=== PATIENT | male | born 1945 | race Caucasian/White ===

== ENCOUNTER 2017-09-03 09:04 | Outpatient (CLI) | payer MEDICARE ==
--- NOTE | 2017-09-03 11:15 | CT ---
CT CHEST WITHOUT CONTRAST: Date: 09/03/17 HISTORY: Atherosclerosis with [place] coronary artery of [place] heart with stable angina pectoris, shortness of breath and chest pain. Evaluation for surgery. FINDINGS: Absence of IV contrast reduces the sensitivity of exam, particularly for evaluation of mediastinal, h ilar, and vascular structures. Vascular calcifications are present. There are changes of median sternotomy. No pneumothoraces, focal areas of consolidation, lung masses, or pleural or pericardial effusions are seen. There is an 8.0 m m perifissural nodule on the left. Measurements of the ascending thoracic aorta on the coronal reformatted images are as follows: Aortic annulus: 2.5 cm Aortic sinus with Valsalva: 3.8 cm Sinotubular junction: 2.7 cm Mid ascending aorta: 3.5 cm High ascending aorta: 3.7 cm The AP dimensions of the ascending and descending thoracic aorta are 3.9 cm and 3.3 cm. Upper abdominal tomograms demonstrate incomplete visualization of an infrarenal abdominal aortic aneu rysm which measures 3.8 cm in the visualized portions. Upper abdominal tomograms demonstrate left renal cysts. There are degenerative changes in the spine. IMPRESSION: Atherosclerotic vascular disease with aortic measurements as described above. POS: DUSTY
== END 2017-09-03 09:05 | disposition home or self-care (01) ==
LOC: CT 09:04
PROVIDERS: ATTEND Thoracic Surgery (Cardiothoracic Vascular Surgery)
DX: I25.119 Atherosclerotic heart disease of native coronary artery with unspecified angina pectoris (principal); I71.4 Abdominal aortic aneurysm, without rupture
CPT/HCPCS: 71250

== ENCOUNTER 2021-08-08 14:36 | Inpatient (IN) | payer MEDICARE ==
[2021-08-08] MEDS ORDERED: HYDROmorphone 0.5 MG/0.5 ML SYRINGE ONE (15:31)
[2021-08-08 15:35] LABS: #Eosinphils 0.2 thou/uL (0.0-0.7); #Lymphocytes 0.7 thou/uL (1.20-3.40); #Monocytes 0.8 thou/uL (0.11-0.59); #Neutrophils 6.6 thou/uL (1.40-6.50); %Basophils 0.2 % (0.0-1.0); %Eosinophils 2.2 % (0.0-10.0); %Monocytes 9.4 % (0.0-10.0); %Neutrophils 80.2 % (42.0-75.0); Hemoglobin 10.7 g/dL (14.0-18.0); Mean Corpuscular HGB CONC 33.1 g/dL (32.0-36.0); Mean Corpuscular Hemoglobin 32.2 pg (27.0-31.0); Mean Corpuscular Volume 97.2 fL (78.0-98.0); Mean Platelet Volume 8.6 fL (7.4-10.4); Platelet Count 184 thou/uL (130-400); RBC Distribution Width 12.2 % (11.5-14.5); Red Blood Cell (RBC) Count 3.32 mill/uL (4.70-6.10); White Blood Cell (WBC) Count 8.3 thou/uL (4.8-10.8)
[2021-08-08] MEDS ORDERED: Dextrose 50% Abboject 50 ML SYRINGE SLOW IVP PRN (15:49)
[2021-08-08] MEDS ORDERED: Ondansetron ODT 4 MG TAB PO PRN (15:49)
[2021-08-08] MEDS ORDERED: Ondansetron PF 4 MG/2 ML Vial IVP PRN (15:49)
[2021-08-08] MEDS ORDERED: Dextrose 5% in Water 1,000 ML IV PRN (15:49)
[2021-08-08] MEDS ORDERED: Promethazine HCl 25 MG/ML VIAL IM PRN (15:49)
[2021-08-08] MEDS ORDERED: hydrALAZINE 20 MG/ML VIAL SLOW IVP PRN (15:49)
[2021-08-08] MEDS ORDERED: traMADol HCl 50 MG TAB PO PRN (15:56)
[2021-08-08 15:57] LABS: ALT (SGPT) 16 U/L (8-55); AST (SGOT) 19 U/L (5-34); Albumin 3.5 g/dL (3.4-4.8); Alkaline Phosphatase 75 U/L (40-110); Anion Gap 14 mmol/L (10-20); BUN (Urea Nitrogen) 31 mg/dL (8.4-25.7); Bilirubin, Total 0.5 mg/dL (0.2-1.2); Calc. Creatinine Clearance 0 mL/min (70-130); Calcium 8.3 mg/dL (7.8-10.44); Carbon Dioxide 22 mmol/L (23-31); Chloride 107 mmol/L (98-107); Globulin 2.3 g/dL (2.4-3.5); Glucose 92 mg/dL (83-110); Potassium 4.6 mmol/L (3.5-5.1); Protein, Total 5.8 g/dL (5.8-8.1); Sodium 138 mmol/L (136-145)
[2021-08-08] MEDS ORDERED: Acetaminophen 325 MG TAB PO SCH (16:00)
[2021-08-08 16:39] LABS: INR-International Normal Ratio 1.4; PTT 45.6 sec (22.9-36.1); Prothrombin Time 16.8 sec (12.0-14.7)
[2021-08-08 17:13] VITALS: BMI 20.6
[2021-08-08] MEDS ORDERED: traMADol HCl 50 MG TAB PO SCH (18:00)
[2021-08-08] MEDS: Acetaminophen 500 MG TAB PO SCH ×2 (18:01→23:06)
[2021-08-08] MEDS: Sodium Chloride 0.9% 1,000 ML IV SCH ×2 (18:02→23:06)
[2021-08-08] MEDS ORDERED: ceFAZolin (BATCH) 2 GM in Premix Bag 1 BAG IVPB SCH (18:30)
[2021-08-08 19:25] LABS: Bacteria/HPF None Seen HPF (None Seen); Bilirubin Negative (Negative); Blood, Urine Negative (Negative); Clarity Clear (Clear); Glucose, Urine (Dipstick) Normal (Negative); Ketone, Urine Trace mg/dL (Negative); Leukocyte Negative Leu/uL (Negative); Nitrite Negative (Negative); Protein, Urine (Dipstick) Negative (Neg-Trace); RBC/HPF 0-3 HPF (0-3); Specific Gravity, Urine 1.011 (1.002-1.036); Squamous Epithelial None Seen HPF (0-3); Urobilinogen Normal mg/dL (Less than 2); WBC/HPF 0-3 HPF (0-3)
[2021-08-08 19:26] LABS: Sperm/HPF 1+ HPF (None Seen)
[2021-08-08 19:28] LABS: Urine Culture Reflex No No
[2021-08-08] MEDS: Senokot S 8.6-50 MG TAB PO SCH (20:05)
[2021-08-08] MEDS: Tamsulosin HCl 0.4 MG CAP PO SCH (20:05)
[2021-08-08] MEDS: traMADol HCl 50 MG TAB PO SCH (20:05)
[2021-08-08] MEDS ORDERED: Famotidine/PF 20 mg/2ml Vial SLOW IVP SCH (21:00)
[2021-08-08] MEDS ORDERED: Ibuprofen 200 MG TAB PO SCH (22:00)
[2021-08-08] MEDS: Morphine 2 MG/ML VIAL SLOW IVP PRN (23:05)
[2021-08-09 00:53] LABS: SARS-CoV-2 PCR by NAA Not Detected (NotDetected)
[2021-08-09] MEDS: Morphine 2 MG/ML VIAL SLOW IVP PRN ×4 (02:36→11:58)
[2021-08-09] MEDS: Acetaminophen 500 MG TAB PO SCH ×3 (05:50→20:02)
[2021-08-09 07:00] LABS: #Eosinphils 0.6 thou/uL (0.0-0.7); #Lymphocytes 0.9 thou/uL (1.20-3.40); #Monocytes 0.8 thou/uL (0.11-0.59); #Neutrophils 5.7 thou/uL (1.40-6.50); %Basophils 0.4 % (0.0-1.0); %Eosinophils 7.6 % (0.0-10.0); %Lymphocytes 11.1 % (21.0-51.0); %Monocytes 10.5 % (0.0-10.0); %Neutrophils 70.4 % (42.0-75.0); Hemoglobin 11.1 g/dL (14.0-18.0); Mean Corpuscular HGB CONC 33.9 g/dL (32.0-36.0); Mean Corpuscular Hemoglobin 33.5 pg (27.0-31.0); Mean Corpuscular Volume 98.8 fL (78.0-98.0); Mean Platelet Volume 8.9 fL (7.4-10.4); Platelet Count 156 thou/uL (130-400); RBC Distribution Width 12.7 % (11.5-14.5); Red Blood Cell (RBC) Count 3.31 mill/uL (4.70-6.10)
[2021-08-09 07:17] LABS: Anion Gap 13 mmol/L (10-20); BUN (Urea Nitrogen) 20 mg/dL (8.4-25.7); Calc. Creatinine Clearance 40 mL/min (70-130); Calcium 7.8 mg/dL (7.8-10.44); Carbon Dioxide 21 mmol/L (23-31); Chloride 109 mmol/L (98-107); Glucose 89 mg/dL (83-110); Phosphorus 2.7 mg/dL (2.3-4.7); Potassium 4.7 mmol/L (3.5-5.1); Sodium 138 mmol/L (136-145)
[2021-08-09] MEDS: Sodium Chloride 0.9% 1,000 ML IV SCH ×2 (09:18→20:38)
[2021-08-09] MEDS: Famotidine 20 MG TAB PO SCH ×2 (09:20→20:37)
[2021-08-09] MEDS: traMADol HCl 50 MG TAB PO SCH ×2 (09:20→20:38)
[2021-08-09] MEDS: Senokot S 8.6-50 MG TAB PO SCH ×2 (09:21→20:37)
[2021-08-09] MEDS: Polyethylene Glycol 3350 17 GM Packet PO SCH (09:21)
[2021-08-09] MEDS: Gabapentin 100 MG CAP PO SCH ×2 (15:20→20:38)
[2021-08-09] MEDS: Cyclobenzaprine 10 MG TAB PO PRN ×2 (15:21→20:38)
[2021-08-09] MEDS: Tamsulosin HCl 0.4 MG CAP PO SCH (20:37)
[2021-08-10] MEDS: Acetaminophen 500 MG TAB PO SCH ×4 (00:31→18:05)
[2021-08-10] MEDS: Sodium Chloride 0.9% 1,000 ML IV SCH ×3 (05:08→14:27)
[2021-08-10] MEDS: Cyclobenzaprine 10 MG TAB PO PRN (05:09)
[2021-08-10] MEDS: Gabapentin 100 MG CAP PO SCH ×2 (05:10→14:02)
[2021-08-10] MEDS: Polyethylene Glycol 3350 17 GM Packet PO SCH (08:05)
[2021-08-10] MEDS: Senokot S 8.6-50 MG TAB PO SCH (08:06)
[2021-08-10] MEDS: Famotidine 20 MG TAB PO SCH (08:32)
[2021-08-10] MEDS: traMADol HCl 50 MG TAB PO SCH ×2 (08:32→14:01)
[2021-08-10] MEDS: Ferrous Sulfate 325 MG TAB PO SCH (09:35)
[2021-08-10] MEDS: Flecainide 50 MG TAB PO SCH (09:41)
[2021-08-10] MEDS: Morphine 2 MG/ML VIAL SLOW IVP PRN (09:45)
[2021-08-10 12:37] LABS: Anion Gap 8 mmol/L (10-20); BUN (Urea Nitrogen) 14 mg/dL (8.4-25.7); Calc. Creatinine Clearance 44 mL/min (70-130); Calcium 8.1 mg/dL (7.8-10.44); Carbon Dioxide 25 mmol/L (23-31); Chloride 108 mmol/L (98-107); Glucose 99 mg/dL (83-110); Potassium 4.6 mmol/L (3.5-5.1); Sodium 136 mmol/L (136-145)
[2021-08-10] MEDS ORDERED: Fentanyl 250 MCG/5 ML VIAL ONE (15:49)
[2021-08-10] MEDS ORDERED: Sodium Chloride 0.9% 100 ML ONE (15:57)
[2021-08-10] MEDS ORDERED: CEFAZOLIN 2 GM VIAL ONE (15:57)
[2021-08-10] MEDS ORDERED: PROPOFOL 200 MG/20 ML VIAL ONE (16:12)
[2021-08-10] MEDS ORDERED: Rocuronium Bromide 10 MG/ML (10ML VIAL) ONE (16:12)
[2021-08-10] MEDS ORDERED: Succinylcholine 200 MG/10 ml SYRINGE FS ONE (16:12)
[2021-08-10] MEDS ORDERED: ePHEDrine 50 MG/ML VIAL ONE (16:12)
[2021-08-10] MEDS ORDERED: Dexamethasone 20 MG/5 ML VIAL ONE (16:12)
[2021-08-10] MEDS ORDERED: Glycopyrrolate 0.2 MG/ML 5 ML SYRINGE ONE (16:12)
[2021-08-10] MEDS ORDERED: Ondansetron PF 4 MG/2 ML Vial ONE (16:12)
[2021-08-10] MEDS ORDERED: PHENYLEPHRINE-NS 100 MCG/ML 10 ML SYRINGE ONE (16:12)
[2021-08-10] MEDS ORDERED: Lidocaine 1% PF 5 ML VIAL ONE (16:12)
[2021-08-10] MEDS ORDERED: fentaNYL Citrate/PF 100 MCG/2 ML SYRINGE ONE (18:15)
[2021-08-11] MEDS: CEFAZOLIN 2 GM in Sodium Chloride 0.9% 100 ML IVPB SCH ×3 (00:50→15:56)
[2021-08-11] MEDS: Sodium Chloride 0.9% 1,000 ML IV SCH ×2 (00:52→08:48)
[2021-08-11] MEDS: Cyclobenzaprine 10 MG TAB PO SCH ×3 (00:58→21:55)
[2021-08-11] MEDS: Gabapentin 100 MG CAP PO SCH ×4 (00:59→21:55)
[2021-08-11] MEDS: Senokot S 8.6-50 MG TAB PO SCH ×4 (00:59→21:55)
[2021-08-11] MEDS: traMADol HCl 50 MG TAB PO SCH ×5 (00:59→21:54)
[2021-08-11] MEDS: Tamsulosin HCl 0.4 MG CAP PO SCH ×3 (00:59→21:55)
[2021-08-11] MEDS: Flecainide 50 MG TAB PO SCH ×4 (00:59→21:53)
[2021-08-11] MEDS: Famotidine 20 MG TAB PO SCH ×4 (00:59→21:53)
[2021-08-11] MEDS: Acetaminophen 500 MG TAB PO SCH ×5 (01:00→17:56)
[2021-08-11 05:22] LABS: #Lymphocytes 0.3 thou/uL (1.20-3.40); #Monocytes 0.6 thou/uL (0.11-0.59); #Neutrophils 9.2 thou/uL (1.40-6.50); %Eosinophils 0.1 % (0.0-10.0); %Lymphocytes 2.5 % (21.0-51.0); %Monocytes 6.3 % (0.0-10.0); %Neutrophils 91.2 % (42.0-75.0); Hemoglobin 10.3 g/dL (14.0-18.0); Mean Corpuscular HGB CONC 32.7 g/dL (32.0-36.0); Mean Corpuscular Hemoglobin 32.3 pg (27.0-31.0); Mean Corpuscular Volume 98.9 fL (78.0-98.0); Mean Platelet Volume 9.1 fL (7.4-10.4); Platelet Count 149 thou/uL (130-400); Red Blood Cell (RBC) Count 3.19 mill/uL (4.70-6.10)
[2021-08-11 06:05] LABS: Anion Gap 14 mmol/L (10-20); BUN (Urea Nitrogen) 18 mg/dL (8.4-25.7); Calc. Creatinine Clearance 41 mL/min (70-130); Calcium 8.1 mg/dL (7.8-10.44); Carbon Dioxide 20 mmol/L (23-31); Chloride 107 mmol/L (98-107); Glucose 159 mg/dL (83-110); Magnesium 1.7 mg/dL (1.6-2.6); Potassium 5.3 mmol/L (3.5-5.1); Sodium 136 mmol/L (136-145)
[2021-08-11] MEDS: Polyethylene Glycol 3350 17 GM Packet PO SCH (08:46)
[2021-08-11] MEDS: Ferrous Sulfate 325 MG TAB PO SCH (08:46)
[2021-08-11] MEDS: Apixaban 5 MG TAB PO SCH ×2 (10:12→21:55)
[2021-08-11] MEDS ORDERED: Sodium Chloride 0.9% 500 ML IV SCH (16:00)
[2021-08-11] MEDS ORDERED: Magnesium Sulfate 3 GM in Sodium Chloride 0.9% 100 ML IVPB SCH (16:45)
[2021-08-12] MEDS: Acetaminophen 500 MG TAB PO SCH ×5 (00:17→23:47)
[2021-08-12] MEDS: traMADol HCl 50 MG TAB PO SCH ×3 (05:22→21:39)
[2021-08-12 06:04] LABS: Hemoglobin 9.7 g/dL (14.0-18.0); Mean Corpuscular HGB CONC 33.2 g/dL (32.0-36.0); Mean Corpuscular Hemoglobin 32.4 pg (27.0-31.0); Mean Corpuscular Volume 97.5 fL (78.0-98.0); Mean Platelet Volume 9.4 fL (7.4-10.4); Platelet Count 154 thou/uL (130-400); RBC Distribution Width 12.3 % (11.5-14.5); Red Blood Cell (RBC) Count 3.01 mill/uL (4.70-6.10); White Blood Cell (WBC) Count 9.2 thou/uL (4.8-10.8)
[2021-08-12 06:19] LABS: Anion Gap 12 mmol/L (10-20); BUN (Urea Nitrogen) 24 mg/dL (8.4-25.7); Calc. Creatinine Clearance 42 mL/min (70-130); Calcium 8.4 mg/dL (7.8-10.44); Carbon Dioxide 22 mmol/L (23-31); Chloride 104 mmol/L (98-107); Glucose 106 mg/dL (83-110); Magnesium 2.5 mg/dL (1.6-2.6); Potassium 4.5 mmol/L (3.5-5.1); Sodium 133 mmol/L (136-145)
[2021-08-12 06:31] LABS: Band 34 % (5-11); Eosinophils 2 % (0-10); Lymphocytes 2 % (21-51); MDiff Complete? YES; Monocytes 9 % (0-10); Neutrophil 53 % (42-75)
[2021-08-12 06:45] LABS: Phosphorus 2.2 mg/dL (2.3-4.7)
[2021-08-12] MEDS: Gabapentin 100 MG CAP PO SCH (06:49)
[2021-08-12] MEDS: Apixaban 5 MG TAB PO SCH ×2 (08:36→21:34)
[2021-08-12] MEDS: Flecainide 50 MG TAB PO SCH ×2 (08:36→21:34)
[2021-08-12] MEDS: Ferrous Sulfate 325 MG TAB PO SCH (08:36)
[2021-08-12] MEDS: Senokot S 8.6-50 MG TAB PO SCH ×2 (08:37→21:33)
[2021-08-12] MEDS: Famotidine 20 MG TAB PO SCH ×2 (08:37→21:34)
[2021-08-12] MEDS: Polyethylene Glycol 3350 17 GM Packet PO SCH (08:37)
[2021-08-12] MEDS: Sodium Phosphate 30 MMOL in Sodium Chloride 0.9% 250 ML 250 ML IVPB SCH ×2 (14:17→18:21)
[2021-08-12] MEDS: Sodium Chloride 1 GM TAB PO SCH ×2 (17:00→23:47)
[2021-08-12] MEDS: Tamsulosin HCl 0.4 MG CAP PO SCH (21:34)
[2021-08-12] MEDS: Cyclobenzaprine 10 MG TAB PO SCH (21:34)
[2021-08-13] MEDS: Melatonin 3 MG TAB PO PRN ×2 (01:58→20:21)
[2021-08-13 06:17] LABS: Hemoglobin 8.3 g/dL (14.0-18.0); Mean Corpuscular HGB CONC 32.5 g/dL (32.0-36.0); Mean Corpuscular Hemoglobin 31.6 pg (27.0-31.0); Mean Corpuscular Volume 97.2 fL (78.0-98.0); Mean Platelet Volume 9.3 fL (7.4-10.4); Platelet Count 161 thou/uL (130-400); RBC Distribution Width 12.2 % (11.5-14.5); Red Blood Cell (RBC) Count 2.62 mill/uL (4.70-6.10); White Blood Cell (WBC) Count 8.6 thou/uL (4.8-10.8)
[2021-08-13] MEDS: Acetaminophen 500 MG TAB PO SCH ×4 (06:25→23:40)
[2021-08-13] MEDS: Sodium Chloride 1 GM TAB PO SCH ×3 (06:25→23:40)
[2021-08-13 06:31] LABS: Anion Gap 12 mmol/L (10-20); BUN (Urea Nitrogen) 20 mg/dL (8.4-25.7); Calc. Creatinine Clearance 44 mL/min (70-130); Calcium 8.1 mg/dL (7.8-10.44); Carbon Dioxide 21 mmol/L (23-31); Chloride 108 mmol/L (98-107); Glucose 110 mg/dL (83-110); Phosphorus 2.6 mg/dL (2.3-4.7); Potassium 4.3 mmol/L (3.5-5.1); Sodium 137 mmol/L (136-145)
[2021-08-13] MEDS: traMADol HCl 50 MG TAB PO SCH ×3 (06:37→22:02)
[2021-08-13 06:47] LABS: Band 15 % (5-11); Lymphocytes 11 % (21-51); MDiff Complete? YES; Monocytes 14 % (0-10); Neutrophil 60 % (42-75)
[2021-08-13] MEDS: Senokot S 8.6-50 MG TAB PO SCH ×2 (09:21→20:22)
[2021-08-13] MEDS: Ferrous Sulfate 325 MG TAB PO SCH (09:21)
[2021-08-13] MEDS: Flecainide 50 MG TAB PO SCH ×2 (09:21→20:21)
[2021-08-13] MEDS: Famotidine 20 MG TAB PO SCH ×2 (09:22→20:21)
[2021-08-13] MEDS: Polyethylene Glycol 3350 17 GM Packet PO SCH (09:22)
[2021-08-13] MEDS: Apixaban 5 MG TAB PO SCH ×2 (09:22→20:21)
[2021-08-13] MEDS: Cyclobenzaprine 10 MG TAB PO PRN (18:27)
[2021-08-13] MEDS: Tamsulosin HCl 0.4 MG CAP PO SCH (20:21)
[2021-08-13] MEDS: Cyclobenzaprine 10 MG TAB PO SCH (20:21)
[2021-08-14] MEDS: traMADol HCl 50 MG TAB PO SCH (06:17)
[2021-08-14] MEDS: Acetaminophen 500 MG TAB PO SCH ×4 (06:24→23:54)
[2021-08-14] MEDS: Sodium Chloride 1 GM TAB PO SCH ×3 (06:24→23:54)
[2021-08-14 06:32] LABS: Mean Corpuscular HGB CONC 32.6 g/dL (32.0-36.0); Mean Corpuscular Hemoglobin 31.6 pg (27.0-31.0); Mean Platelet Volume 8.5 fL (7.4-10.4); Platelet Count 189 thou/uL (130-400); RBC Distribution Width 12.2 % (11.5-14.5); Red Blood Cell (RBC) Count 2.53 mill/uL (4.70-6.10); White Blood Cell (WBC) Count 7.7 thou/uL (4.8-10.8)
[2021-08-14 06:47] LABS: Anion Gap 14 mmol/L (10-20); BUN (Urea Nitrogen) 19 mg/dL (8.4-25.7); Calc. Creatinine Clearance 45 mL/min (70-130); Calcium 8.4 mg/dL (7.8-10.44); Carbon Dioxide 22 mmol/L (23-31); Chloride 106 mmol/L (98-107); Glucose 99 mg/dL (83-110); Magnesium 1.9 mg/dL (1.6-2.6); Phosphorus 2.7 mg/dL (2.3-4.7); Potassium 3.9 mmol/L (3.5-5.1); Sodium 138 mmol/L (136-145)
[2021-08-14 06:54] LABS: Band 5 % (5-11); Eosinophils 6 % (0-10); Lymphocytes 5 % (21-51); MDiff Complete? YES; Monocytes 7 % (0-10); Neutrophil 77 % (42-75)
[2021-08-14] MEDS ORDERED: traMADol HCl 50 MG TAB PO PRN (10:03)
[2021-08-14] MEDS: Flecainide 50 MG TAB PO SCH ×2 (10:41→20:10)
[2021-08-14] MEDS: Apixaban 5 MG TAB PO SCH ×2 (10:41→20:09)
[2021-08-14] MEDS: Famotidine 20 MG TAB PO SCH ×2 (10:42→20:09)
[2021-08-14] MEDS: Polyethylene Glycol 3350 17 GM Packet PO SCH (10:42)
[2021-08-14] MEDS: Senokot S 8.6-50 MG TAB PO SCH ×2 (10:43→20:10)
[2021-08-14] MEDS: Ferrous Sulfate 325 MG TAB PO SCH (10:46)
[2021-08-14] MEDS: Cyclobenzaprine 10 MG TAB PO SCH (20:09)
[2021-08-14] MEDS: Melatonin 3 MG TAB PO PRN (20:10)
[2021-08-14] MEDS: Tamsulosin HCl 0.4 MG CAP PO SCH (20:10)
[2021-08-15] MEDS: Cyclobenzaprine 10 MG TAB PO PRN (03:36)
[2021-08-15] MEDS: Sodium Chloride 1 GM TAB PO SCH ×2 (06:21→15:45)
[2021-08-15] MEDS: Acetaminophen 500 MG TAB PO SCH ×3 (06:21→17:25)
[2021-08-15 06:29] LABS: BUN (Urea Nitrogen) 19 mg/dL (8.4-25.7); Calc. Creatinine Clearance 46 mL/min (70-130); Calcium 8.5 mg/dL (7.8-10.44); Carbon Dioxide 24 mmol/L (23-31); Chloride 104 mmol/L (98-107); Glucose 107 mg/dL (83-110); Magnesium 1.8 mg/dL (1.6-2.6); Phosphorus 3.2 mg/dL (2.3-4.7); Potassium 3.8 mmol/L (3.5-5.1); Sodium 137 mmol/L (136-145)
[2021-08-15 06:47] LABS: Hemoglobin 8.3 g/dL (14.0-18.0); Mean Corpuscular HGB CONC 32.4 g/dL (32.0-36.0); Mean Corpuscular Hemoglobin 31.5 pg (27.0-31.0); Mean Corpuscular Volume 97.3 fL (78.0-98.0); Mean Platelet Volume 8.4 fL (7.4-10.4); Platelet Count 213 thou/uL (130-400); RBC Distribution Width 12.1 % (11.5-14.5); Red Blood Cell (RBC) Count 2.64 mill/uL (4.70-6.10); White Blood Cell (WBC) Count 7.8 thou/uL (4.8-10.8)
[2021-08-15] MEDS: Apixaban 5 MG TAB PO SCH ×2 (08:37→20:12)
[2021-08-15] MEDS: Famotidine 20 MG TAB PO SCH ×2 (08:38→20:11)
[2021-08-15] MEDS: Flecainide 50 MG TAB PO SCH ×2 (08:38→20:11)
[2021-08-15] MEDS: Ferrous Sulfate 325 MG TAB PO SCH (08:39)
[2021-08-15] MEDS: Polyethylene Glycol 3350 17 GM Packet PO SCH (08:41)
[2021-08-15] MEDS: Senokot S 8.6-50 MG TAB PO SCH ×2 (08:41→20:12)
[2021-08-15 09:09] LABS: MDiff Complete? YES
[2021-08-15 09:10] LABS: Band 7 % (5-11); Eosinophils 3 % (0-10); Lymphocytes 7 % (21-51); Monocytes 13 % (0-10); Neutrophil 70 % (42-75); Platelet Morphology Comment Appears Adequate; Polychromasia SLIGHT = 2-3 cells (100X) (0-2/hpf)
[2021-08-15 12:08] LABS: SARS-CoV-2 PCR by NAA Not Detected (NotDetected)
[2021-08-15] MEDS ORDERED: Sodium Chloride 0.9% 500 ML IV SCH (16:00)
[2021-08-15] MEDS: Tamsulosin HCl 0.4 MG CAP PO SCH (20:11)
[2021-08-15] MEDS: Cyclobenzaprine 10 MG TAB PO SCH (20:12)
[2021-08-15 20:58] LABS: Anion Gap 13 mmol/L (10-20)
[2021-08-16 00:18] VITALS: BP 111/58; TEMP 98
== END 2021-08-15 23:05 | DRG 522 ==
LOC: ERS 14:36 → IMCU/EMU 15:54 → SJJU 22:03
PROVIDERS: ADMIT Surgery; ATTEND Surgery
PROC: 0SRS0JZ Replacement of Left Hip Joint, Femoral Surface with Synthetic Substitute, Open Approach (ICD-10-PCS; principal; 2021-08-10)
DX: S72.142A Displaced intertrochanteric fracture of left femur, initial encounter for closed fracture (principal); Z20.822 Contact with and (suspected) exposure to COVID-19; W17.89XA Other fall from one level to another, initial encounter; I10 Essential (primary) hypertension; I25.10 Atherosclerotic heart disease of native coronary artery without angina pectoris; Z95.1 Presence of aortocoronary bypass graft; Z79.82 Long term (current) use of aspirin; Z79.01 Long term (current) use of anticoagulants; Z79.899 Other long term (current) drug therapy; Z98.1 Arthrodesis status; Z95.0 Presence of cardiac pacemaker; R41.0 Disorientation, unspecified; T40.2X5A Adverse effect of other opioids, initial encounter
CPT/HCPCS: 36415; 70450; 71045; 72170; 80048; 80053; 81001; 83735; 84100; 84484; 85025; 85610; 85730; 93005; 93010; 96374; C1776; G0390; J1100; J1170; J2270; J2405; J2704; J3010; J3475; J3490; J7030; J7050; U0003; U0005

== ENCOUNTER 2025-03-01 00:58 | Observation (INO) | payer MEDICARE ==
[2025-03-01 01:38] LABS: #Basophils 0.05 10x3/uL (0.0-0.2); #Eosinophils 0.30 10x3/uL (0.0-0.7); #Monocytes 0.80 10x3/uL (0.11-0.59); #Neutrophils 4.37 10x3/uL (1.40-6.50); %Basophils 0.8 % (0.0-1.0); %Eosinophils 4.6 % (0.0-10.0); %Lymphocytes 14.9 % (21.0-51.0); %Monocytes 12.3 % (0.0-10.0); %Neutrophils 67.1 % (42.0-75.0); Hematocrit 29.9 % (42.0-52.0); Hemoglobin 9.5 g/dL (14.0-18.0); Mean Corpuscular Hemoglobin 29.8 pg (27.0-31.0); Mean Corpuscular Volume 93.7 fL (78.0-98.0); Platelet Count 207 10x3/uL (130-400); Red Blood Cell (RBC) Count 3.19 mill/uL (4.70-6.10); White Blood Cell (WBC) Count 6.51 10x3/uL (4.8-10.8)
[2025-03-01 01:52] LABS: ALT (SGPT) 14 U/L (Less than 45); AST (SGOT) 20 U/L (11-34); Albumin 3.4 g/dL (3.1-4.5); Alkaline Phosphatase 78 U/L (40-110); Anion Gap 10 mmol/L (10-20); BUN (Urea Nitrogen) 35 mg/dL (8.4-25.7); Bilirubin, Total 0.2 mg/dL (0.3-1.2); Calc. Creatinine Clearance 0 mL/min (70-130); Calcium 8.6 mg/dL (7.8-10.44); Carbon Dioxide 25 mmol/L (23-31); Chloride 110 mmol/L (98-107); Globulin 2.6 g/dL (2.4-3.5); Glucose 117 mg/dL (83-110); Lipase 39 U/L (8-78); Potassium 3.8 mmol/L (3.5-5.1); Sodium 141 mmol/L (136-145)
[2025-03-01] MEDS ORDERED: Acetaminophen 325 MG TAB PO PRN (04:16)
[2025-03-01 05:29] VITALS: BMI 17.4
[2025-03-01] MEDS: Aspirin 81 mg Enteric Coated Tablet PO SCH (08:41)
[2025-03-01] MEDS: PNEUMOC 20-VAL CONJ-DIP CRM/PF 0.5 ML SYRINGE IM ONE (08:42)
[2025-03-01 10:53] VITALS: BP 140/79; TEMP 98
[2025-03-01] MEDS: Apixaban 2.5 MG TAB PO SCH (10:54)
[2025-03-01] MEDS ORDERED: Apixaban 2.5 MG TAB PO SCH (21:00)
[2025-03-01] MEDS ORDERED: Metoprolol Succinate XL 25 MG ER.TAB PO SCH (21:00)
== END 2025-03-01 13:48 | disposition home or self-care (01) ==
LOC: ERS 00:58 → 2NO 03:50
PROVIDERS: ADMIT Student in an Organized Health Care Education/Training Program; ATTEND Internal Medicine
DX: R07.9 Chest pain, unspecified (principal); I10 Essential (primary) hypertension; I25.10 Atherosclerotic heart disease of native coronary artery without angina pectoris; Z95.0 Presence of cardiac pacemaker; Z98.41 Cataract extraction status, right eye; Z98.42 Cataract extraction status, left eye; Z90.89 Acquired absence of other organs; Z79.82 Long term (current) use of aspirin; Z79.899 Other long term (current) drug therapy
CPT/HCPCS: 71045; 80053; 83690; 84484 ×2; 85025; 93005; 99285; G0378 ×2; 36415